=== PATIENT | female | born 1980 | race Caucasian/White ===

== ENCOUNTER → 2016-10-08 | Outpatient (CLI) | payer BC ==
[~2016-10-08] MED LIST: FLNCV PO; FRRS300 PO; PRENTAB26 PO
--- NOTE | 2016-10-08 08:51 | DIAGNOSTIC IMAGING REPORT ---
RIGHT FOOT MIN 3 VIEWS ROUTINE CLINICAL HISTORY: RT FOOT PAIN Right pain COMPARISON: None. DISCUSSION: The bones and joint spaces appear intact. There is no evidence of fracture, dislocation or bony disease. There is no evidence for soft tissue swelling. IMPRESSION: Negative study. Electronically signed by: Simone Foreman M.D. 10/08/2016 8:49 AM Dictated Date/Time: 10/08/2016 8:49 AM
== END ==
LOC: C.RADBC 08:33
PROVIDERS: ATTEND Family Medicine
DX: M79.671 Pain in right foot (principal)

== ENCOUNTER → 2017-01-06 | Outpatient (CLI) | payer BC | END | disposition home or self-care (01) | LOC: C.PAPS 12:19 | PROVIDERS: ATTEND Family Medicine | DX: Z01.419 Encounter for gynecological examination (general) (routine) without abnormal findings (principal) ==

== ENCOUNTER → 2017-05-12 | Outpatient (CLI) | payer BC ==
[2017-05-12 16:04] LABS: URINE APPEARANCE CLEAR (CLEAR); URINE BILIRUBIN NEG (NEG); URINE COLOR YELLOW; URINE NITRITE NEG (NEG); URINE SPECIFIC GRAVITY 1.033 (1.000-1.030); UROBILINOGEN NEG (NEG)
[2017-05-12 16:05] LABS: MANUAL MICROSCOPIC REQUIRED? NO; REVIEW REQ? NO
[2017-05-18 02:56] LABS: CHLAMYDIA TRACH RNA*** NOT DETECTED (NOT DETECTED); GC (NEIS GONORRHOEAE)RNA** NOT DETECTED (NOT DETECTED)
== END | disposition home or self-care (01) ==
LOC: C.LABSPEC 15:32
PROVIDERS: ATTEND Obstetrics & Gynecology
DX: Z34.81 Encounter for supervision of other normal pregnancy, first trimester (principal)

== ENCOUNTER → 2017-06-29 | Outpatient (CLI) | payer OTHER | END | disposition home or self-care (01) | LOC: C.LAB1850 11:50 | PROVIDERS: ATTEND Obstetrics & Gynecology | DX: O09.522 Supervision of elderly multigravida, second trimester (principal) ==

== ENCOUNTER → 2017-09-22 | Outpatient (CLI) | payer OTHER | END | disposition home or self-care (01) | LOC: C.LABSPEC 13:24 | PROVIDERS: ATTEND Obstetrics & Gynecology | DX: O09.523 Supervision of elderly multigravida, third trimester (principal); Z3A.00 Weeks of gestation of pregnancy not specified ==

== ENCOUNTER 2017-12-08 20:12 | Outpatient (CLI) | payer OTHER ==
[~2017-12-08] VITALS: Ht 165.1 cm; Wt 70.0 kg
[2017-12-08 21:26] VITALS: Ht 165.1 cm; Wt 70.0 kg
[2017-12-10] MEDS ORDERED: OXYC-57 PO (06:42)
[2017-12-10] MEDS ORDERED: MTR600X PO (06:42)
== END 2017-12-08 21:57 | disposition home or self-care (01) ==
LOC: C.OPB 20:12 → C.LD 20:12 → C.OPB 21:57
PROVIDERS: ATTEND Obstetrics & Gynecology
DX: O36.5930 Maternal care for other known or suspected poor fetal growth, third trimester, not applicable or unspecified (principal); O09.523 Supervision of elderly multigravida, third trimester; Z3A.39 39 weeks gestation of pregnancy

== ENCOUNTER 2017-12-09 06:59 | Inpatient (IN) | payer OTHER ==
[2017-12-09] VITALS (11 sets, daily range): BP systolic 92–109; BP diastolic 58–64; PULSE 72–88; TEMP 36.7–37; O2SAT 95–99; Wt 70.0 kg
[~2017-12-09 06:59] MED LIST changes: -FLNCV PO; -FRRS300 PO
[2017-12-09] MEDS ORDERED: LACTATED RINGER'S 1000ML 1,000 ML IV SCH (07:42)
[2017-12-09] MEDS ORDERED: LACTATED RINGER'S 1000ML 1,000 ML IV PRN (07:42)
[2017-12-09] MEDS ORDERED: LACTATED RINGER'S 1000ML 1,000 ML IV ONE (07:44)
[2017-12-09] MEDS ORDERED: CITRIC ACID/SODIUM CITRATE 15 ML UDC PO ONE (07:45)
[2017-12-09] MEDS ORDERED: MoRPHine SULFATE PF 1 MG/ML 10 ML AMP/VIAL ONE (07:59)
[2017-12-09 08:00] LABS: HEMATOCRIT 36.5 % (37-47); HEMOGLOBIN 12.9 g/dL (12.0-16.0); MEAN CELL VOLUME 88.8 fL (80-100); MEAN CORPUSCULAR HEMOGLOBIN 31.4 pg (25-34); MEAN CORPUSCULAR HGB CONC 35.3 g/dl (32-36); MEAN PLATELET VOLUME 9.8 fL (7.4-10.4); PLATELET COUNT 162 K/uL (130-400); RED CELL DISTRIBUTION WIDTH CV 13.1 % (11.5-14.5); RED CELL DISTRIBUTION WIDTH SD 41.8 fL (36.4-46.3); WHITE BLOOD COUNT 13.98 K/uL (4.8-10.8)
[2017-12-09] MEDS ORDERED: CEFAZOLIN IV 2,000 MG in SYRINGE 0 ML IV ONE (08:00)
[2017-12-09] MEDS ORDERED: NALOXONE HCL 0.4 MG/1 ML VIAL/CARP IV PRN (08:15)
[2017-12-09] MEDS ORDERED: EpHEDrine SULFATE INJ 50 MG/ML AMP IV PRN (08:15)
[2017-12-09] MEDS ORDERED: PROMETHAZINE HCL INJ 12.5 MG in SODIUM CHLORIDE 0.9% 50ML 50 ML IV PRN (08:15)
[2017-12-09] MEDS ORDERED: NO NARCOTICS OR SEDATIVES SCH (08:15)
[2017-12-09] MEDS ORDERED: NALBUPHINE HCL INJ 10 MG/ML 10ML VIAL IV PRN (08:15)
[2017-12-09] MEDS ORDERED: DiphenhydrAMINE HCL 50 MG/ML VIAL IV PRN (08:15)
[2017-12-09] MEDS ORDERED: NALOXONE HCL INJ 0.08 MG in SYRINGE 1.8 ML IV PRN (08:15)
[2017-12-09] MEDS ORDERED: KETOROLAC TROMETHAMINE 30 MG/ML VIAL IV. PRN ×2 (08:15)
[2017-12-09] MEDS ORDERED: LACTATED RINGER'S 1000ML 500 ML IV PRN (08:15)
[2017-12-09] MEDS ORDERED: NALOXONE HCL INJ 1 MG in SODIUM CHLORIDE 0.9% 1000ML 1,000 ML IV PRN ×4 (08:15)
[2017-12-09] MEDS ORDERED: ONDANSETRON INJ 2 MG/ML 2 ML VIAL IV PRN ×2 (08:15)
[2017-12-09] MEDS ORDERED: MoRPHine SULFATE PF 1 MG/ML 10 ML AMP/VIAL EPI PRN (08:15)
[2017-12-09] MEDS ORDERED: MEPERIDINE HCL 25 MG/ML CARP IV PRN ×2 (08:15)
[2017-12-09] MEDS ORDERED: ATROPINE SULFATE 0.1 MG/ML 5ML SYR IV PRN (08:15)
[2017-12-09] MEDS ORDERED: SODIUM CHLORIDE 0.9% 1000ML 1,000 ML IV PRN (08:15)
--- NOTE | 2017-12-09 08:25 | HISTORY & PHYSICAL EXAMINATION ---
DATE OF ADMISSION: 12/09/2017 CHIEF COMPLAINT: Induction of labor scheduled. HISTORY OF PRESENT ILLNESS: Patient is a 37-year-old G4, P2-0-1-2 at 39 weeks 6 days who presented last night for a Lin bulb insertion for induction of labor secondary to intrauterine growth restriction. She had Lin balloon placed last night and returned this morning feeling increasing contractions. She has not had gushing of fluid or vaginal bleeding. On physical exam this morning, upon arrival, her cervix was dilated to 4 cm, 80% effaced and there was no palpable presenting part. There were felt palpable bulging membranes. An ultrasound was performed at bedside by myself and this revealed a coil of umbilical cord between head and the cervix. This was confirmed by use of color Doppler. Patient's is otherwise complicated by intrauterine growth restriction and Rh negative status. Her prior deliveries were vaginal. PAST MEDICAL HISTORY: Denies. PAST SURGICAL HISTORY: LEEP and wisdom teeth. SOCIAL HISTORY: Denies tobacco, alcohol and drug use. FAMILY HISTORY: Noncontributory. MEDICATIONS: vitamins. ALLERGIES: No known drug allergies. REVIEW OF SYSTEMS: Negative except as above. PHYSICAL EXAMINATION: VITAL SIGNS: Stable, afebrile. GENERAL: Awake, alert and oriented x3, no acute distress. CARDIOVASCULAR: Regular rate and rhythm. S1, S2. LUNGS: Clear to auscultation bilaterally. ABDOMEN: Soft, gravid, nontender to palpation. EXTREMITIES: No edema, no calf tenderness. CERVIX: Sterile vaginal exam 4 cm, 80% effaced. No palpable presenting part, but bulging membranes. heart tracing category 1, contractions every 4-5 minutes. LABS: Blood type A negative, rubella immune, group B strep negative. ASSESSMENT AND PLAN: A 37-year-old G4, P2-0-1-2 at 39 weeks and 6 days with funic presentation of umbilical cord. I discussed the scenario with patient and her at bedside and described that there is a strong possibility that if patient's membranes rupture that the umbilical cord will deliver first causing a cord prolapse. I recommended delivery by section. The patient is agreeable. We will proceed to the operating room as soon as possible. Informed consent was obtained.
[2017-12-09] MEDS ORDERED: EpHEDrine SULFATE 50MG/5ML SYR ONE (08:51)
[2017-12-09] MEDS ORDERED: OXYTOCIN INJ 10 UNITS/ML VIAL ONE (08:51)
[2017-12-09] MEDS ORDERED: PHENYLEPHRINE 100MCG/ML 5ML SYR ONE (08:51)
[2017-12-09] MEDS ORDERED: METOCLOPRAMIDE HCL INJ 5 MG/ML 2 ML VIAL ONE (08:51)
[2017-12-09] MEDS ORDERED: ONDANSETRON INJ 2 MG/ML 2 ML VIAL ONE (08:51)
[2017-12-09] MEDS ORDERED: PROPOFOL IV EMULSION 10 MG/ML 20 ML VIAL ONE (08:51)
[2017-12-09] MEDS ORDERED: LIDOCAINE HCL 2% MPF 5 ML VIAL (20MG/ML) ONE (08:51)
--- NOTE | 2017-12-09 09:27 | [facility] Post Operative Brief Note ---
Immediate Operative Summary Operative Date Dec 09, 2017. Pre-Operative Diagnosis Term intrauterine , Primary Caesarean Section for funic presentation. Post-Operative Diagnosis Unstable lie Procedure(s) Performed Primary low uterine transverse incision caesarean section, delivery of live male child at [address] Jaylan Ledesma Thickener Operator Surgeon(s) Dr. Bri Burgess, Dr. Marek Briseno (resident) Estimated Blood Loss 600 ML Findings Consistent with Post-Op Diagnosis Viable male , Apgars 8/9. Specimens A: Placenta B: Cord Blood C: Cord blood gases (arterial & venous) Drains talley, clear yellow Anesthesia Type Spinal Complication(s) Baby was cephalic prior to , upon hysterotomy incision, baby had rotated to breech. Disposition Accompanied Pt To Recover: no Disposition: L&D
[2017-12-09] MEDS ORDERED: SENNA 8.6 MG TAB PO PRN (09:30)
[2017-12-09] MEDS ORDERED: MAGNESIUM HYDROXIDE SUSP 30 ML UDC PO PRN (09:30)
[2017-12-09] MEDS ORDERED: LANOLIN OINT EXT PRN (09:30)
--- NOTE | 2017-12-09 09:37 | [facility] Operative Report ---
Operative Report Operative Date Dec 09, 2017. Pre-Operative Diagnosis Term intrauterine , Primary Caesarean Section for funic presentation. Post-Operative Diagnosis Unstable lie Procedure(s) Performed Primary low uterine transverse incision caesarean section, delivery of live male child at [address] Jaylan Ledesma Beam Press Operator Surgeon(s) Dr. Bri Burgess, Dr. Marek Briseno (resident) Estimated Blood Loss 600 ML Findings Viable male , Apgars 8/9. Specimens A: Placenta B: Cord Blood C: Cord blood gases (arterial & venous) Drains talley, clear yellow Anesthesia Type Spinal Complication(s) Baby was cephalic prior to , upon hysterotomy incision, baby had rotated to breech. Disposition no L&D Indications 37-year-old 012 at 39 weeks 6 days who presented for induction of labor. She had received a Talley balloon last night, returned this morning and the Talley was in the vagina. This was removed, her cervix was found to be 4/80%, however there was no palpable presenting part. Ultrasound was performed, this found a cephalic presenting baby with a funic presentation of umbilical cord with a large coil of cord between head and cervix. I recommended a primary section to patient, as if she were to rupture her membranes, she would likely have a cord prolapse. She was agreeable. Informed consent was obtained. Description of Procedure The patient was consented and we discussed the procedure in her labor and delivery room. All questions were answered. She was taken to the operating room where spinal anesthesia was administered. She is prepared and draped in the usual sterile fashion in the supine position with a leftward tilt. A timeout was confirmed. 2 g of Ancef were infused prior to skin incision. The Pfannenstiel skin incision was made with the scalpel and carried through to the underlying layer of fascia. The fascia was nicked at midline, and this incision was extended bilaterally bluntly. The superior aspect of the fascial incision was grasped with Cristina clamps 2, elevated off the underlying rectus abdominis muscles, and dissected bluntly. Next, the inferior aspect of the incision was dissected similarly. The rectus abdominis were at midline, the peritoneum was entered bluntly digitally. The uterus was found to be significantly rotated to maternal left, with uterine vessels directly anterior. The uterus was rotated into a normal anatomic position, the bladder flap was created using Metzenbaum scissors and blunt dissection, the bladder blade was replaced, and the hysterotomy incision was made with a new scalpel in a low transverse fashion. This incision was extended bilaterally. When I reached my hand into the uterus through the hysterotomy incision, the presenting part at this time was bilateral feet. These were grasped and delivered. At this time, I felt that the hysterotomy incision was not large enough to accommodate delivery of the breech, so I extended it by approximately 2 cm on the left apex bandage scissors, with carefully against my fingers which were placed inside the uterus. The hips were delivered, the torso was delivered the arms were swept midline and delivered, and the head was finally delivered. The cord was doubly clamped and cut and the baby was handed off to the waiting stone decorator. A cord segment was obtained for cord gases. Cord blood was obtained. The placenta was then delivered spontaneously intact with a three-vessel cord. The uterus was exteriorized, Pitocin was given and the uterus became firm. The uterus was cleared of all clots and debris. The hysterotomy incision was reapproximated using 0 Vicryl in a running locked stitch. A second layer of the same suture was used to imbricate the incision. A [id number] stitch was used to obtain excellent hemostasis. The posterior uterus was evaluated and found to be normal. The uterus was then returned to the abdomen, where gutters were cleared of all clots and debris the hysterotomy was inspected again and a Bovie cautery was used to obtain hemostasis. To further aid with hemostatic control, a large piece of Gelfoam was placed across the hysterotomy incision. Next, due to patient's concern for diastases recti, the rectus abdominis muscles were reapproximated using 2-0 chromic suture in [id number] stitches. Next, the fascial incision was reapproximated using 0 Vicryl in a running stitch. The subcutaneous tissue was irrigated, and reapproximated using 2-0 plain gut suture In a running stitch. The skin incision was reapproximated using 4-0 Vicryl in a running subcuticular stitch. Steri-Strips and a bandage were applied. Sponge, instrument, needle counts were correct at the conclusion of the delivery 2. The patient and baby tolerated the delivery well and were taken to the recovery room in stable and good condition. I attest to the content of the Intraoperative Record and any orders documented therein. Any exceptions are noted below.
[2017-12-09] MEDS ORDERED: GELATIN SPONGE 12-7MM ONE (10:01)
[2017-12-09] MEDS: OXYTOCIN INJ 20 UNITS in LACTATED RINGER'S 1000ML 1,000 ML IV SCH ×2 (10:36→18:05)
[2017-12-09] MEDS ORDERED: [UNRECOGNIZED DRUG - SUPPLY] ONE (11:49)
--- NOTE | 2017-12-09 13:50 | Anesthesiology Progress Note ---
Anesthesia Post Op Note Date & Time Dec 09, 2017 at 13:49 Notes Mental Status: alert / awake / arousable, participated in evaluation Pt Amnestic to Procedure: Yes Nausea / Vomiting: adequately controlled Pain: adequately controlled Airway Patency, RR, SpO2: stable & adequate BP & HR: stable & adequate Hydration State: stable & adequate Anesthetic Complications: no major complications apparent
[2017-12-09] MEDS: SIMETHICONE 80 MG CHEW PO SCH ×3 (15:53→20:19)
[2017-12-09] MEDS: DOCUSATE SODIUM 100 MG CAP PO SCH (20:19)
[2017-12-10] VITALS: BP 95/58; PULSE 69; TEMP 37; O2SAT 97
[2017-12-10] MEDS ORDERED: MEPERIDINE HCL 50 MG/ML CARP IV PRN ×2 (01:00)
[2017-12-10] MEDS ORDERED: OXYCODONE/ACETAMINOPHEN 5-325 TAB PO PRN (01:00)
[2017-12-10] MEDS ORDERED: DC INTRASPINAL MORPHINE ONE (01:00)
[2017-12-10] MEDS ORDERED: DiphenhydrAMINE HCL 50 MG/ML VIAL IV PRN (01:00)
[2017-12-10] MEDS ORDERED: ZOLPIDEM TARTRATE 5 MG TAB PO PRN (01:00)
[2017-12-10] MEDS ORDERED: ONDANSETRON INJ 2 MG/ML 2 ML VIAL IV PRN (01:00)
[2017-12-10] MEDS ORDERED: KETOROLAC TROMETHAMINE 30 MG/ML VIAL IV. PRN (01:00)
[2017-12-10] MEDS ORDERED: PROMETHAZINE HCL INJ 25 MG in SODIUM CHLORIDE 0.9% 50ML 50 ML IV PRN (01:00)
[2017-12-10 01:12] VITALS: O2SAT 96
[2017-12-10] MEDS: IBUPROFEN 600 MG TAB PO PRN ×4 (02:14→21:39)
[2017-12-10 03:35] VITALS: BP 92/59; PULSE 80; TEMP 36.6
[2017-12-10] MEDS ORDERED: CEFAZOLIN IV 2,000 MG in DEXTROSE 5% 50ML 50 ML IV SCH (06:00)
[2017-12-10] MEDS ORDERED: MTR600X PO (06:42)
[2017-12-10] MEDS ORDERED: OXYC-57 PO (06:42)
--- NOTE | 2017-12-10 06:44 | Discharge Instructions ---
Discharge Instructions Date of Service Dec 10, 2017. Admission Reason for Admission: Induction Discharge Discharge Diagnosis / Problem: section recovery Discharge Goals Goal(s): Routine recovery after Medications Continue Dispensed Medications: lansinoh Activity Recommendations Activity Limitations: per Instructions/Follow-up section . Instructions / Follow-Up Instructions / Follow-Up ACTIVITY RECOMMENDATIONS: * Gradual return to full activity over the next 2-3 weeks. * No lifting - nothing heavier than baby over the next 2-3 weeks. * Do not engage in vigorous exercise, sexual activity or sports until cleared by your physician. * Do not drive or operate any motorized equipment until cleared by your physician. * You may shower/bathe daily. MEDICATIONS: For discomfort or pain, you may use Acetaminophen (Tylenol), Ibuprofen (Advil), or Naproxen (Aleve) following the package directions. For constipation you may use Colace following the package directions. BREAST CARE: If you are not breast feeding: * Wear a supportive bra 24 hours a day for one to two weeks. * Avoid stimulating your breasts and nipples as much as possible during the first few weeks after delivery. * When taking a shower, have the warm water hit your back, not breasts. * When your breasts feel full, apply ice packs. Usually three to four times a day helps ease the discomfort. * Take a mild pain medication (Tylenol / Motrin) when you are uncomfortable. If breast feeding: * Use breast milk to lubricate nipples. Lansinoh cream may be used for sore nipples. You do not need to remove cream prior to breast feeding. If using a different brand of cream, check the label for directions regarding removal of cream prior to nursing. * Wear a supportive bra. * If having problems with breasts or breast feeding, call a middleware consultant or your health care provider. SPECIAL CARE INSTRUCTIONS: When you are discharged from the hospital, it is important for you to follow the instructions listed below: * During the first week at home, you should be able to care for yourself and your baby. In addition, the usual light household activities are encouraged. * Limit your activities to the way you feel. Do not try to clean the house or move furniture. Be sensible. * If you actively engage in sports and have done so up until the time of your delivery, you may resume these activities as soon as you feel able. This may take up to one month or even longer. Use good judgment. * Continue to take your vitamins for at least six weeks after the of your baby. * Your diet need not be limited unless you were on a special diet before your delivery. Breast-feeding mothers need around 2500 calories per day and at least 64-80 ounces of fluid per day (8 to 10 glasses). * You should eat foods from the four major food groups. Crash diets or fad diets are to be avoided. Eating lean meats, fresh fruits and vegetables, low-fat dairy products, high fiber foods and a regular exercise program, will help you get back to your pre- weight without putting your health at risk. * Constipation is sometimes a problem after delivery. Take a mild laxative as needed. If breast feeding, Milk of Magnesia is acceptable to use. You may use a suppository or Fleets enema. * A daily shower or tub bath is suggested. Wash incision daily with warm soapy water and pat dry. It doesn't need to be covered unless drainage is present. * A bloody vaginal discharge will usually continue until around four weeks . A small amount of bleeding may continue for as long as six weeks. Vaginal discharge changes from the bright red bleeding after delivery to pink then brownish and finally yellowish-pink before becoming white and disappearing. * Bleeding may increase with activity. Your first period may come in 4-8 weeks. If you are breast feeding, your period may be delayed even longer. * [place] (sex) can begin whenever both you and your partner feel comfortable and do not have any form of genital infection. It is recommended that you wait at least six weeks for internal and external healing to occur. If you have questions, please talk to your health care practitioner. A condom should be used to prevent infection and . * Foreplay, gentle intercourse and lubrication is very important the first several times to prevent pain. A water-based lubricant such as K-Y jelly or Astroglide may be used. * If you have RH negative blood and your baby is RH positive, you will receive RHOGAM by injection prior to discharge. The nurse will give you a card to keep with you that has the date and place that you received RHOGAM after delivery. * During your care, you had a Rubella screen done to check for the presence of rubella antibodies in your blood. If your test was negative, you will receive a Rubella vaccine prior to discharge. This vaccine may cause a fever, soreness at the injection site and flu-like symptoms. If these symptoms persist, notify your health care practitioner. is not advised for one month after a Rubella vaccine. * Verbalizes understanding of car seat law as reviewed with patient nursing. * Car Seat hand-out given and reviewed with patient by nursing. * Shaken baby information reviewed with patient by nursing. Call you doctor if: * Heavy bleeding (saturating several pads an hour) or passing clots the size of your fist. * A fever >101 degrees F (38.3 degrees C) on two occasions four hours apart and /or chills. * Unusual pain in the pelvic or vaginal areas. * Call the doctor for any increased redness, drainage or swelling around the incision and any pain unrelieved by prescribed pain medication. * "Baby Blues" lasting longer than two weeks. If you have any questions or concerns, call your health care practitioner at . FOLLOW UP VISIT: * Please call the office at to schedule a 6 week examination. It is important you keep this appointment. It is important for you to make arrangements for either yearly or twice yearly check-ups thereafter. Current Hospital Diet Patient's current hospital diet: Clear Liquid Diet Discharge Diet Recommended Diet: Regular OB Diet Procedures Procedures Performed: Primary low uterine transverse incision caesarean section, delivery of live male child at 0845 Pending Studies Studies pending at discharge: no Medical Emergencies . Who to Call and When: Medical Emergencies: If at any time you feel your situation is an emergency, please call [phone] immediately. . Non-Emergent Contact Non-Emergency issues call your: Surg Physician Asst . . "Provider Documentation" section prepared by Monisha Corea. . [place] Drug Monitoring Program Search Results: no issues identified
--- NOTE | 2017-12-10 06:50 | Progress Note ---
Subjective Dec 10, 2017. Subjective conversation w/ patient, conversation w/ family, physical exam, chart review, lab review Ambulation: ambulating normally Voiding: no voiding problems Passing Gas: Yes Diet Tolerance: Regular Diet Lochia: Small Feeding Type: Breast Feeding Review of Systems Constitutional: No fever Respiratory: No shortness of breath Cardiac: No chest pain Abdomen: No nausea, No vomiting Objective Vital Signs Date Time Temp Pulse Resp B/P (MAP) Pulse Ox O2 Delivery O2 Flow Rate FiO2 12/10/17 03:35 36.6 80 18 92/59 (70) Room Air 12/10/17 01:12 18 96 12/10/17 00:00 97 Room Air 12/10/17 00:00 18 97 12/10/17 00:00 37.0 69 18 95/58 (70) 97 Room Air 12/09/17 23:00 18 95 12/09/17 22:38 20 98 12/09/17 21:24 18 96 12/09/17 20:21 18 98 12/09/17 19:57 16 98 12/09/17 18:50 18 95 12/09/17 18:50 37.0 88 18 92/58 (69) 95 Room Air 12/09/17 18:07 18 97 12/09/17 17:10 20 98 12/09/17 16:32 18 97 12/09/17 15:45 20 98 12/09/17 14:50 36.7 72 18 109/64 (79) 99 Room Air 12/09/17 14:50 18 99 12/09/17 14:50 99 Room Air Physical Exam General Appearance: WELL-APPEARING, WD/WN Respiratory/Chest: no respiratory distress, no accessory muscle use Fundus: Firm, Non-Tender, Relation to Umbilicus (inferior to umbilicus) Incision Description: Clean, Dry & Intact Laboratory Results Last 24 Hours Test 12/09/17 07:45 12/10/17 06:00 White Blood Count 13.98 K/uL Red Blood Count 4.11 M/uL Hemoglobin 12.9 g/dL Hematocrit 36.5 % Mean Corpuscular Volume 88.8 fL Mean Corpuscular Hemoglobin 31.4 pg Mean Corpuscular Hemoglobin Concent 35.3 g/dl RDW Standard Deviation 41.8 fL RDW Coefficient of Variation 13.1 % Platelet Count 162 K/uL Mean Platelet Volume 9.8 fL Medications Current Inpatient Medications Medications (Trade) Dose Ordered Sig/Concha Route Start Time Stop Time Status Last Admin Dose Admin Lactated Ringer's 1,000 ml @ 125 mls/hr Q8H IV 12/09/17 07:42 12/11/17 07:41 Ketorolac Tromethamine (Toradol Inj) 30 mg Q6H PRN IV. 12/10/17 01:00 12/14/17 00:59 Meperidine HCl (Demerol Inj) 50 mg Q4H PRN IV 12/10/17 01:00 12/24/17 00:59 Meperidine HCl (Demerol Inj) 75 mg Q4H PRN IV 12/10/17 01:00 12/24/17 00:59 Oxycodone/ Acetaminophen (Percocet 5-325mg Tab) 1 tab Q4H PRN PO 12/10/17 01:00 12/24/17 00:59 Oxycodone/ Acetaminophen (Percocet 5-325mg Tab) 2 tab Q4H PRN PO 12/10/17 01:00 12/24/17 00:59 Ibuprofen (Motrin Tab) 600 mg Q4H PRN PO 12/10/17 01:00 01/09/18 00:59 12/10/17 02:14 600 MG Promethazine HCl 25 mg/Sodium Chloride 51 ml @ 204 mls/hr Q4H PRN IV 12/10/17 01:00 01/09/18 00:59 Ondansetron HCl (Zofran Inj) 4 mg Q4H PRN IV 12/10/17 01:00 01/09/18 00:59 Prenat Multivit/ [place]/Iron/Folic Ac ( Vitamin Tab) 1 tab DAILY PO 12/10/17 08:00 01/09/18 07:59 Bisacodyl (Dulcolax Tab) 5 mg HS ONCE PO 12/10/17 22:00 12/10/17 22:01 Docusate Sodium (coLACE CAP) 100 mg BID PO 12/09/17 20:00 01/08/18 19:59 12/09/17 20:19 100 MG Magnesium Hydroxide (Milk Of Magnesia Susp) 30 ml HS PRN PO 12/09/17 09:30 01/08/18 09:29 Lanolin (Lanolin Oint) PRN PRN EXT 12/09/17 09:30 01/08/18 09:29 Zolpidem Tartrate (Ambien Tab) 5 mg HSZ PRN PO 12/10/17 01:00 01/09/18 00:59 Simethicone (Mylicon Chew Tab) 80 mg QID PO 12/09/17 13:00 01/08/18 12:59 12/09/17 20:19 80 MG Diphenhydramine HCl (Benadryl Cap) 25 mg QID PRN PO 12/10/17 01:00 01/09/18 00:59 Diphenhydramine HCl (Benadryl Inj) 25 mg QID PRN IV 12/10/17 01:00 01/09/18 00:59 Senna (Senokot Tab) 17.2 mg HS PRN PO 12/09/17 09:30 01/08/18 09:29 Assessment and Plan Day#: 1 Continue Routine Care: stable post-op course continue current care plan
[2017-12-10 07:11] LABS: HEMOGLOBIN 11.7 g/dL (12.0-16.0)
[2017-12-10 07:25] VITALS: BP 94/60; PULSE 76; TEMP 36.8
[2017-12-10] MEDS: PRENATAL VITAMIN TAB PO SCH (07:56)
[2017-12-10] MEDS: SIMETHICONE 80 MG CHEW PO SCH ×4 (07:56→19:59)
[2017-12-10] MEDS: DOCUSATE SODIUM 100 MG CAP PO SCH ×2 (10:01→19:59)
[2017-12-10 16:00] VITALS: BP 99/63; PULSE 71; TEMP 36.5; O2SAT 97
[2017-12-10] MEDS: OXYCODONE/ACETAMINOPHEN 5-325 TAB PO PRN ×2 (16:47→21:39)
[2017-12-10 20:05] VITALS: BP 106/70; PULSE 71; TEMP 36.7; O2SAT 97
[2017-12-10] MEDS ORDERED: BISACODYL 5 MG TABEC PO ONE (22:00)
[2017-12-11 00:37] VITALS: BP 109/67; PULSE 81; TEMP 36.6; O2SAT 97
[2017-12-11] MEDS: OXYCODONE/ACETAMINOPHEN 5-325 TAB PO PRN ×4 (01:37→19:30)
[2017-12-11] MEDS: IBUPROFEN 600 MG TAB PO PRN ×5 (01:37→19:30)
--- NOTE | 2017-12-11 07:19 | Progress Note ---
Subjective Dec 11, 2017. Subjective conversation w/ patient, physical exam, lab review Ambulation: ambulating normally Voiding: no voiding problems Passing Gas: Yes Diet Tolerance: Regular Diet Lochia: Small Objective Vital Signs Date Time Temp Pulse Resp B/P (MAP) Pulse Ox O2 Delivery O2 Flow Rate FiO2 12/11/17 00:37 36.6 81 16 109/67 (81) 97 Room Air 12/10/17 20:05 97 Room Air 12/10/17 20:05 36.7 71 20 106/70 (82) 97 Room Air 12/10/17 16:00 36.5 71 20 99/63 (75) 97 Room Air 12/10/17 16:00 97 Room Air 12/10/17 07:25 36.8 76 20 94/60 (71) 12/10/17 07:25 Room Air Physical Exam General Appearance: WELL-APPEARING Abdomen: non tender Fundus: Firm Incision Description: Clean, Dry & Intact Extremities: no calf tenderness Laboratory Results Last 24 Hours Test 12/11/17 06:00 Assessment and Plan Post-Op Day#: 2 Continue Routine Care: continue current care. No ext pain
[2017-12-11 07:27] LABS: BASO % 0.1 %; BASO ABS # 0.01 K/uL (0-0.2); EOS % 1.5 %; EOS ABS # 0.17 K/uL (0-0.5); HEMATOCRIT 34.4 % (37-47); HEMOGLOBIN 11.6 g/dL (12.0-16.0); IG# 0.02 K/uL (0.00-0.02); LYMPH % 16.5 %; LYMPH ABS # 1.84 K/uL (1.2-3.4); MEAN CORPUSCULAR HGB CONC 33.7 g/dl (32-36); MEAN PLATELET VOLUME 9.6 fL (7.4-10.4); MONO % 12.2 %; MONO ABS # 1.36 K/uL (0.11-0.59); NEUT % 69.5 %; NEUT ABS # 7.73 K/uL (1.4-6.5); PLATELET COUNT 172 K/uL (130-400); RED CELL DISTRIBUTION WIDTH CV 13.4 % (11.5-14.5); RED CELL DISTRIBUTION WIDTH SD 44.7 fL (36.4-46.3); WHITE BLOOD COUNT 11.13 K/uL (4.8-10.8)
[2017-12-11 07:35] VITALS: BP 107/71; PULSE 64; TEMP 36.6; O2SAT 96
[2017-12-11] MEDS: DOCUSATE SODIUM 100 MG CAP PO SCH ×2 (07:47→19:30)
[2017-12-11] MEDS: SIMETHICONE 80 MG CHEW PO SCH ×4 (07:47→19:31)
[2017-12-11] MEDS: PRENATAL VITAMIN TAB PO SCH (07:47)
[2017-12-11 15:15] VITALS: BP 96/51; PULSE 77; TEMP 36.8; O2SAT 96
[2017-12-11 19:20] VITALS: BP 107/69; PULSE 77; TEMP 36.6; O2SAT 98
[2017-12-11 23:45] VITALS: BP 106/69; PULSE 67; TEMP 36.7; O2SAT 97
[2017-12-12] MEDS: IBUPROFEN 600 MG TAB PO PRN ×2 (00:17→05:44)
[2017-12-12] MEDS: OXYCODONE/ACETAMINOPHEN 5-325 TAB PO PRN ×2 (00:18→05:44)
--- NOTE | 2017-12-12 06:42 | Progress Note ---
Subjective Dec 12, 2017. Subjective conversation w/ patient, physical exam, chart review, lab review Ambulation: ambulating normally Voiding: no voiding problems Diet Tolerance: Regular Diet Lochia: Small Feeding Type: Breast Feeding Objective Vital Signs Date Time Temp Pulse Resp B/P (MAP) Pulse Ox O2 Delivery O2 Flow Rate FiO2 12/11/17 23:45 36.7 67 16 106/69 (81) 97 Room Air 12/11/17 19:20 36.6 77 16 107/69 (82) 98 Room Air 12/11/17 19:20 Room Air 12/11/17 15:15 96 Room Air 12/11/17 15:15 36.8 77 16 96/51 (66) 96 Room Air 12/11/17 07:35 96 Room Air 12/11/17 07:35 36.6 64 18 107/71 (83) 96 Room Air Physical Exam General Appearance: WELL-APPEARING Abdomen: non tender Fundus: Firm Incision Description: Clean, Dry & Intact Extremities: no calf tenderness Assessment and Plan Post-Op Day#: 3 Continue Routine Care: Meets criteria for d/c No calf pain, minimal bleeding. Prescriptions done. Reviewed instructions. F/U Office
[2017-12-12 07:25] VITALS: BP 111/71; PULSE 69; TEMP 36.7; O2SAT 98
[2017-12-12] MEDS: DOCUSATE SODIUM 100 MG CAP PO SCH (07:49)
[2017-12-12] MEDS: PRENATAL VITAMIN TAB PO SCH (07:49)
[2017-12-12] MEDS: SIMETHICONE 80 MG CHEW PO SCH (07:50)
[2017-12-12 12:00] VITALS: BP_DIAS 71; PULSE 69; TEMP 36.7
== END 2017-12-12 13:07 | disposition home or self-care (01) | DRG 765 ==
LOC: C.LD 06:59 → C.OBG 14:47
PROVIDERS: ADMIT Obstetrics & Gynecology; ATTEND Obstetrics & Gynecology
PROC: 10D00Z1 Extraction of Products of Conception, Low, Open Approach (ICD-10-PCS; principal; 2017-12-09 08:17)
DX: O32.0XX0 Maternal care for unstable lie, not applicable or unspecified (principal); O36.5930 Maternal care for other known or suspected poor fetal growth, third trimester, not applicable or unspecified; O09.523 Supervision of elderly multigravida, third trimester; Z3A.39 39 weeks gestation of pregnancy; Z37.0 Single live birth

== ENCOUNTER → 2018-01-05 | Outpatient (CLI) | payer OTHER ==
[~2018-01-05] MED LIST changes: +MTR600X PO; +OXYC-57 PO
--- NOTE | 2018-01-05 19:20 | DIAGNOSTIC IMAGING REPORT ---
[facility] CLINICAL HISTORY: LEFT LOWER QUADRANT ABDOMINAL TENDERNESS COMPARISON STUDY: No previous studies for comparison. FINDINGS: There is no pathologic bowel dilatation. There are no calcifications suspicious for renal calculi. There is scattered stool within the colon. There are scattered nonspecific pelvic basin calcifications. IMPRESSION: 1. No evidence of pathologic bowel dilatation 2. Nonspecific left pelvic basin calcifications Electronically signed by: German Rodriguez M.D. 01/05/2018 7:19 PM Dictated Date/Time: 01/05/2018 7:18 PM
== END | disposition home or self-care (01) ==
LOC: C.RAD 18:44
PROVIDERS: ATTEND Family Medicine
DX: R10.814 Left lower quadrant abdominal tenderness (principal); R93.5 Abnormal findings on diagnostic imaging of other abdominal regions, including retroperitoneum